=== PATIENT | male | born 1975 | race African-American/Black ===

== ENCOUNTER 2017-12-09 22:50 | Observation (INO) | payer SELFPAY ==
[2017-12-09] MEDS ORDERED: Famotidine/PF 20 mg/2ml Vial ONE (23:53)
[2017-12-09] MEDS ORDERED: diphenhydrAMINE 50 MG/ML VIAL ONE (23:53)
[2017-12-10] MEDS ORDERED: methylPREDNISolone Sod Succ/PF 125 MG/2 ML VIAL ONE (00:23)
[2017-12-10 00:40] LABS: #Basophils 0.1 thou/uL (0.0-0.2); #Eosinphils 0.1 thou/uL (0.0-0.7); #Lymphocytes 2.5 thou/uL (1.20-3.40); #Monocytes 0.5 thou/uL (0.11-0.59); #Neutrophils 2.7 thou/uL (1.40-6.50); %Basophils 1.5 % (0.0-1.0); %Eosinophils 2.3 % (0.0-10.0); %Lymphocytes 41.9 % (21.0-51.0); %Monocytes 8.8 % (0.0-10.0); %Neutrophils 45.5 % (42.0-75.0); Hemoglobin 14.5 g/dL (14.0-18.0); Mean Corpuscular HGB CONC 31.5 g/dL (32.0-36.0); Mean Corpuscular Hemoglobin 28.6 pg (27.0-31.0); Mean Corpuscular Volume 90.6 fl (80.0-94.0); Mean Platelet Volume 9.3 fL (7.4-10.4); Platelet Count 156 thou/uL (130-400); RBC Distribution Width 12.4 % (11.5-14.5); Red Blood Cell (RBC) Count 5.07 mill/uL (4.70-6.10)
[2017-12-10] MEDS ORDERED: Sodium Chloride For Inhalation 0.9% 3 ML NEB ONE (00:59)
[2017-12-10 01:01] LABS: ALT (SGPT) 14 U/L (8-55); AST (SGOT) 26 U/L (5-34); Albumin 3.8 g/dL (3.5-5.0); Alkaline Phosphatase 78 U/L (40-150); Anion Gap 13 mmol/L (10-20); BUN (Urea Nitrogen) 10 mg/dL (8.9-20.6); Bilirubin, Total 0.5 mg/dL (0.2-1.2); Calc. Creatinine Clearance 0 mL/min (70-130); Carbon Dioxide 24 mmol/L (22-29); Chloride 103 mmol/L (98-107); Estimated GFR-MDRD Greater than 90; Globulin 2.9 g/dL (2.4-3.5); Glucose 128 mg/dL (70-105); Potassium 4.4 mmol/L (3.5-5.1); Protein, Total 6.7 g/dL (6.0-8.3); Sodium 136 mmol/L (136-145)
[2017-12-10] MEDS ORDERED: Acetaminophen 325 MG TAB PO PRN (02:10)
[2017-12-10] MEDS ORDERED: Acetaminophen 650 MG Suppository PR PRN (02:10)
[2017-12-10] MEDS ORDERED: Bisacodyl 5 MG TAB PO PRN (02:10)
[2017-12-10 03:01] VITALS: BMI 30.5
--- NOTE | 2017-12-10 03:23 | HP ---
PRIMARY CARE PHYSICIAN: Emerson Evangelista M.D. CHIEF COMPLAINT: Facial swelling. HISTORY OF PRESENT ILLNESS: Mr. Mcclain is a pleasant 42-year-old gentleman who was seen at [facility] on 12/10/2017. He reports that he develops lip swelling on an almost monthly basis. He has been unable to identify a trigger for that. Yesterday, he had dinner. He had a burger as part of his dinner. He started having upper lip swelling. It subsequently spread to the left side of his face. He denies any nausea or vomiting. He denies any fevers or chills. He denies any difficulty breathing. He denies any wheezing. He came to the emergency room because of ongoing facial swelling. REVIEW OF SYSTEMS: The following complete review of systems was negative, unless otherwise mentioned in the HPI or below: Constitutional: Weight loss or gain, ability to conduct usual activities. Skin: Rash, itching. Eyes: Double vision, pain. ENT/Mouth: Nose bleeding, neck stiffness, pain, tenderness. Cardiovascular: Palpitations, dyspnea on exertion, orthopnea. Respiratory: Shortness of breath, wheezing, cough, hemoptysis, fever or night sweats. Gastrointestinal: Poor appetite, abdominal pain, heartburn, nausea, vomiting, constipation, or diarrhea. Genitourinary: Urgency, frequency, dysuria, nocturia. Musculoskeletal: Pain, swelling. Neurologic/Psychiatric: Anxiety, depression. Allergy/Immunologic: Skin rash, bleeding tendency. PAST MEDICAL HISTORY: Hypertension. PAST SURGICAL HISTORY: Left hand surgery. SOCIAL HISTORY: The patient smokes half a pack of cigarettes a day. He denies alcohol use or recreational drug use. FAMILY HISTORY: He denies any family history of angioedema. ALLERGIES: No known drug allergies. CURRENT MEDICATIONS: None. PHYSICAL EXAMINATION: GENERAL: Mr. Mcclain is sleepy, but arousable, not in acute distress. VITAL SIGNS: Blood pressure is 154/97. Pulse is 76. His breathing at rate of 18 and saturating 99% on room air. He is afebrile. EYES: No scleral icterus. No conjunctival pallor. ENT: He has both upper and lower lip swelling. Tongue size is normal. Airway is patent. He also has diffuse swelling over the left side of his face. NECK: Supple, nontender, normal range of movement. Trachea is midline. RESPIRATORY: Accessory muscles of breathing are not active. Chest wall movements are symmetric bilaterally. LUNGS: Clear to auscultation, without any wheezing bilaterally. CARDIOVASCULAR: S1 and S2 are heard, regular. Peripheral pulses palpable. No carotid bruit, no pericardial rub. ABDOMEN: Soft, nontender, bowel sounds are heard, no hepatomegaly, no splenomegaly. SKIN: Facial and lip swelling as described above. NEUROLOGIC: Cranial nerves II-XII intact. Deep tendon reflexes are 2+. MUSCULOSKELETAL: Power is 5/5 in all 4 extremities. LYMPHATIC: No cervical lymphadenopathy. PSYCHIATRIC: Normal mood, normal affect, the patient is oriented to person, place, and time. LABORATORY DATA: Mr. Mcclain' labs and investigations were reviewed. He has a normal white count, elevated basophil at 1.5%, normal hemoglobin, normal platelet count, unremarkable comprehensive metabolic profile and normal C- reactive protein. ESR is less than ASSESSMENT AND PLAN: Mr. Mcclain is a pleasant 42-year-old gentleman, who was seen at [facility] on 12/10/2017. His problem list includes: 1. Facial swelling: He appears to have, and has yet undiagnosed angioedema. He will be admitted to the hospital. He will be treated with intravenous steroids, H1 and H2 blockers as well as racemic epinephrine nebulizers if needed. Once stable, he will be discharged home with [facility] for home. He will be advised to follow up with his primary care provider for further workup with regarding angioedema. 2. Tobacco abuse: He has been provided tobacco cessation counseling. He will be started on a nicotine patch if needed. 3. Hypertension. Monitor vital signs, titrate antihypertensives as needed. Many thanks for allowing me to participate in your patient's care. Please feel free to contact me with any questions or concerns. LEVEL OF RISK: Moderate. LEVEL OF COMPLEXITY: Moderate. MTDD
[2017-12-10] MEDS: diphenhydrAMINE 50 MG/ML VIAL IVP SCH ×2 (05:54→12:41)
[2017-12-10] MEDS ORDERED: Famotidine/PF 20 mg/2ml Vial SLOW IVP SCH (09:00)
[2017-12-10 15:49] VITALS: BP 148/84; TEMP 98.4
--- NOTE | 2017-12-10 22:59 | DIS ---
DATE OF ADMISSION: 12/10/2017 DATE OF DISCHARGE: 12/10/2017 DISCHARGE DIAGNOSES: 1. Angioedema idiopathic versus hereditary, improved. 2. Elevated blood pressure. 3. Tobacco use. CONSULTATIONS: None. PERTINENT LABORATORY AND X-RAY FINDINGS: Basic metabolic profile within normal limits. CRP less merrill n 0.50. CBC within normal limits. ESR less than 1. HOSPITAL COURSE: Patient was observed on the telemetry unit after initially presenting with facial s welling in the context of known angioedema starting in the patient's early 20s. The patient presente d with perioral lip and facial edema without specific inciting event. The patient was placed on IV S lelo-Medrol, diphenhydramine, and IV Pepcid and monitored for clinical decompensation. The patient st abilized with decreased swelling in the lips and facial area and exhibited no evidence of airway comp romise. The patient remained clinically stable on the observation unit with telemetry monitoring naomie wing sinus mechanism without evidence of acute arrhythmia or dysrhythmia. The patient was noted with mild elevated blood pressure and will need additional surveillance on an ongoing basis after dischar ge. Current recommendations are to discharge home with prednisone taper as well as Benadryl and Pepc id. The patient will also be prescribed EpiPen for emergent use. Overall, patient clinically stable and ready for discharge on 12/10/2017. DISCHARGE MEDICATIONS: 1. Benadryl 25 mg p.o. q.i.d. p.r.n. 2. Pepcid 20 mg p.o. b.i.d. 3. Prednisone 20 mg 2 tabs p.o. q.a.m. x3 days, followed by 1 tab p.o. daily x3 days, followed by lawrence lf a tab p.o. daily x3 days. 4. EpiPen 0.3 mg injected as needed for angioedema. FOLLOWUP: The patient given information regarding follow up with a [facility] in [place], [place]. CONDITION ON DISCHARGE: Stable. ACTIVITY: Ad michele. DIET: Heart healthy. CODE STATUS: FULL. DISPOSITION: Home on 12/10/2017.
== END 2017-12-10 17:50 | disposition home or self-care (01) ==
LOC: ERS 22:50 → 2SW 12-10 01:10
PROVIDERS: ADMIT Internal Medicine; ATTEND Internal Medicine
DX: T78.3XXA Angioneurotic edema, initial encounter (principal); F17.210 Nicotine dependence, cigarettes, uncomplicated; I10 Essential (primary) hypertension; Z98.890 Other specified postprocedural states
CPT/HCPCS: 80053; 85025; 85652; 86140; 94640; 96374; 96375; 96376; 99406; G0378; J1200; J2920; J2930; S0028